=== PATIENT | female | born 1965 | race Caucasian/White ===

== ENCOUNTER 2019-11-26 08:20 | Outpatient (CLI) | payer MEDICARE, MEDICAID, SELFPAY | END 2019-11-26 08:21 | disposition home or self-care (01) | PROVIDERS: PCP Family Medicine; Visit Provider Family Medicine | DX: Z01.10 Encounter for examination of ears and hearing without abnormal findings (principal) | CPT/HCPCS: 99199 ==

== ENCOUNTER 2020-12-11 12:31 | Outpatient (CLI) | payer MEDICARE, MEDICAID, SELFPAY | END 2020-12-11 12:32 | disposition home or self-care (01) | PROVIDERS: PCP Family Medicine; Visit Provider Family Medicine | DX: Z01.118 Encounter for examination of ears and hearing with other abnormal findings (principal); H91.93 Unspecified hearing loss, bilateral | CPT/HCPCS: 92567; 92587 ==

== ENCOUNTER 2021-12-20 09:02 | Outpatient (CLI) | payer MEDICARE, MEDICAID, SELFPAY | END 2021-12-20 09:03 | disposition home or self-care (01) | LOC: ANHAUDIO 09:03 | PROVIDERS: PCP Family Medicine; Visit Provider Family Medicine | DX: Z01.10 Encounter for examination of ears and hearing without abnormal findings (principal) | CPT/HCPCS: 92587 ==

== ENCOUNTER 2023-01-04 08:55 | Outpatient (CLI) | payer MEDICARE, MEDICAID, SELFPAY | END 2023-01-04 08:56 | disposition home or self-care (01) | LOC: ANHAUDIO 08:56 | PROVIDERS: PCP Family Medicine; Visit Provider Family Medicine | DX: H91.93 Unspecified hearing loss, bilateral (principal) | CPT/HCPCS: 92567; 92587 ==